=== PATIENT | male | born 1945 | race Two or more races ===

== ENCOUNTER → 2017-08-28 | Outpatient (CLI) | payer OTHER ==
[~2017-08-28] MED LIST: AMLO-96 PO; AVAPRO; ESZO3TAB37 PO; LOR5 PO; METF-407 PO; PRE10 PO; TRICOR
--- NOTE | 2017-08-28 14:24 | RADIOLOGY IMAGING REPORT ---
FACILITY: [facility] PATIENT NAME: Kwame Pina : 1945 MR: [id number] V: [id number] EXAM DATE: ORDERING PHYSICIAN: ANA MENDOZA TECHNOLOGIST: Location: [facility] - [place] Patient: Kwame Pina : 1945 Visit/Account:[id number] Date of Sevice: 08/28/2017 EXAMINATION: CT abdomen and pelvis without IV contrast HISTORY: Left flank pain. History of kidney stones. TECHNIQUE: Axial CT images of the abdomen and pelvis were obtained without IV contrast, with montgomery l and sagittal 2D reconstructed images. One of the following dose optimization techniques was utilized in the performance of this exam: Autom ated exposure control; adjustment of the mA and/or kV according to the patient's size; or use of an i terative reconstruction technique. Specific details can be referenced in the facility's radiology C T exam operational policy. COMPARISON: 11/23/2016. FINDINGS: Evaluation of the solid and viscus parenchymal organs is limited without the benefit of IV contrast. Kidney/ureters/bladder: There is a 3 mm stone in the distal left ureter at the UVJ. No resulting hydr onephrosis of the left kidney. No additional urinary calculi on either side. 3.2 cm cyst along the l ower pole of the left kidney. The urinary bladder is mildly distended and grossly unremarkable. Liver: Fatty infiltration of the liver Gallbladder and bile ducts: Negative. Spleen: Negative. Pancreas: Negative. Adrenal glands: Negative. Bowel and peritoneum: The small bowel and colon are unremarkable. Normal appendix. No free fluid or free intraperitoneal air. Lymph node assessment: Negative. Vessels: Scattered vascular calcifications. Normal caliber abdominal aorta. Musculoskeletal: No acute osseous findings. Scattered degenerative changes along the spine. Body wall: Small fat-containing right inguinal hernia. Lung bases: Negative. IMPRESSION: 1. 3 mm calculus in the distal left ureter at the UVJ. No hydronephrosis. 2. No additional urinary calculi on either side. 3. No other acute intra-abdominal findings. Report Dictated By: Javier De La Fuente MD at 08/28/2017 2:13 PM Report E-Signed By: Javier De La Fuente MD at 08/28/2017 2:20 PM WSN:[id number]
== END ==
LOC: CT 13:26
PROVIDERS: ATTEND Urology
DX: N20.1 Calculus of ureter (principal); Z87.442 Personal history of urinary calculi; K76.0 Fatty (change of) liver, not elsewhere classified
CPT/HCPCS: 74176

== ENCOUNTER → 2017-08-28 | Outpatient (CLI) | payer OTHER ==
--- NOTE | 2017-08-28 15:11 | RADIOLOGY IMAGING REPORT ---
FACILITY: [facility] - [place] PATIENT NAME: Kwame Pina : 1945 MR: [id number] V: [id number] EXAM DATE: ORDERING PHYSICIAN: CARIN ADRIAN TECHNOLOGIST: Location: [facility] - [place], [place] Patient: Kwame Pina : 1945 Visit/Account:[id number] Date of Sevice: 08/28/2017 HAND COMPLETE RIGHT HISTORY: Overuse injury,: swelling at third metacarpal phalangeal joint COMPARISON: None FINDINGS: AP lateral and oblique views of the right hand demonstrates no evidence of acute bony abnor mality. There is no evidence of lytic or blastic bony lesions. There is mild degenerative disease o f the distal interphalangeal joints. This is characteristic of osteoarthritis. The visualized soft tissues are unremarkable IMPRESSION: No evidence of acute osseous injury. Degenerative arthropathy most consistent with osteoarthritis. Report Dictated By: Gagan Sheikh at 08/28/2017 3:04 PM Report E-Signed By: Gagan Sheikh at 08/28/2017 3:06 PM WSN:[id number]
== END ==
LOC: RAD 14:06
PROVIDERS: ATTEND Nurse Practitioner Family
DX: M19.041 Primary osteoarthritis, right hand (principal)

== ENCOUNTER → 2017-09-04 | Outpatient (REF) | payer OTHER | LOC: ZZSENDIN 16:00 | PROVIDERS: ATTEND Urology | DX: N20.0 Calculus of kidney (principal) | CPT/HCPCS: 82365; 88300 ==

== ENCOUNTER → 2018-09-13 | Outpatient (CLI) | payer OTHER ==
[~2018-09-13] MED LIST changes: +AMLO-125 PO; -AMLO-96 PO
--- NOTE | 2018-09-13 10:37 | RADIOLOGY IMAGING REPORT ---
FACILITY: [facility] - [place] PATIENT NAME: wKame Pina : 1945 MR: [id number] V: [id number] EXAM DATE: [id number] ORDERING PHYSICIAN: ANA MENDOZA TECHNOLOGIST: Location: [facility] - [place] Patient: Kwame Pina : 1945 Visit/Account:[id number] Date of Sevice: 09/13/2018 Ultrasound of the kidneys and urinary bladder HISTORY: Hematuria. Nephrolithiasis. COMPARISON: CT abdomen and pelvis dated 08/28/2017. Findings: Standard ultrasound of the kidneys and urinary bladder is performed. Right kidney: 10.7 x 6.5 x 5.7 cm. Left kidney: 9.7 x 6.1 x 4.5 cm. Kidneys: 2.3 x 2.3 x 1.7 cm simple cyst in the inferior left kidney. Subcentimeter simple cyst in the superior left kidney. There is an additional linear echogenic structure in the interpolar region of the left kidney that may be calcification or septation within a cyst. No hydronephrosis. Urinary bladder: Negative. Visualized aorta and IVC: Patent. IMPRESSION: 1. No hydronephrosis. 2. 2.3 x 2.3 x 1.7 cm simple cyst in the inferior left kidney. Subcentimeter simple cyst in the super ior left kidney. 3. There is an additional linear echogenic structure in the interpolar region of the left kidney that may be calcification or septation within a cyst. No hydronephrosis. Report Dictated By: Oleksandr Chandler MD at 09/13/2018 9:10 AM Report E-Signed By: Oleksandr Chandler MD at 09/13/2018 10:32 AM WSN:[id number]
== END ==
LOC: US 00:51
PROVIDERS: ATTEND Urology
DX: N28.1 Cyst of kidney, acquired (principal)
CPT/HCPCS: 76705

== ENCOUNTER → 2018-10-05 | Outpatient (REF) | payer OTHER | LOC: ZZSENDIN 12:00 | PROVIDERS: ATTEND Urology | DX: N20.0 Calculus of kidney (principal) | CPT/HCPCS: 82365; 88300 ==